=== PATIENT | male | born 1995 | race Caucasian/White ===

== ENCOUNTER 2020-12-12 21:02 | Emergency (ER) | payer SELFPAY ==
[~2020-12-12] VITALS: Ht 177.8 cm; Wt 95.7 kg
[2020-12-12] MEDS ORDERED: KETOROLAC 30 MG/1 ML ONE (21:22)
[2020-12-12] MEDS ORDERED: LORazepam 2 MG/ML, 1ML ONE (21:22)
[2020-12-12] MEDS ORDERED: KETOROLAC 30 MG/1 ML IVPush ONE (21:30)
[2020-12-12] MEDS ORDERED: SODIUM CHLORIDE 0.9% 1,000ML IVBOLUS ONE (21:30)
[2020-12-12] MEDS ORDERED: LORazepam 2 MG/ML, 1ML IVPush ONE (21:30)
[2020-12-12] MEDS ORDERED: SODIUM CHLORIDE FLUSH 10ML SYR IVF ONE (21:30)
--- NOTE | 2020-12-12 21:35 | NUR ---
PT TO ED C/O L CP. STATES HE WAS ABOUT TO SIT DOWN TO DINNER AND DEVELOPED THIS SUDDEN PAIN, AND RAN OUT OF [facility]. PT ON MONITOR, ST @125. PT ALSO C/O R FA PAIN. PT TACHYPENIC, STATES THIS HAPPENED ABOUT 5 MONTHS AGO, SAW A HUNTER GUIDE BUT NO OTHER F/U REQD. PIV ESTB, LABS SENT, MEDS PER OCT. CALL LIGHT IN REACH. WILL CTM. B/L BPS OBTAINED.
[2020-12-12 21:48] LABS: ALANINE AMINOTRANSFERASE 110 U/L (12-78); ALBUMIN 4.1 g/dL (3.4-5.0); ANION GAP 8 mmol/L (5-15); CALCIUM 8.9 mg/dL (8.5-10.1); CHLORIDE 105 mmol/L (98-107); CREATININE 1.15 mg/dL (0.7-1.3)
[2020-12-12 21:55] LABS: BASOPHILS % (AUTO) 1 % (0-1); EOSINOPHILS % (AUTO) 3 % (1-7); LYMPHOCYTES % (AUTO) 41 % (22-44); MD NO; MEAN CORPUSCULAR HEMOGLOBIN 33.5 pg (27.5-34.5); MEAN CORPUSCULAR HGB CONC 35.3 g/dL (33.2-36.2); MEAN PLATELET VOLUME 7.2 fL (7.4-10.4); MONOCYTES % (AUTO) 10 % (2-9); NEUTROPHILS % (AUTO) 45 % (42-75); PLATELET COUNT 349 x10^3/uL (130-400); RED CELL DISTRIBUTION WIDTH 13.2 % (9.4-14.8)
[2020-12-12 21:59] LABS: ALKALINE PHOSPHATASE 91 U/L (45-117); BILIRUBIN,TOTAL 0.7 mg/dL (0.2-1.0); T4 (THYROXINE) 10.8 mcg/dL (4.5-12.1); TOTAL PROTEIN 8.4 g/dL (6.4-8.2); TROPONIN I < 0.015 ng/mL (0.000-0.045)
[2020-12-12 22:08] VITALS: BP 134/84
--- NOTE | 2020-12-12 22:11 | NUR ---
PT STATES FEELING MILDLY BETTER, INTERMITTEN CP. AMBULATORY TO RESTROOM C STEADY GAIT.
--- NOTE | 2020-12-12 22:23 | NUR ---
TO CT VIA CART. FAMILY AT BS.
[2020-12-12 22:40] LABS: AMPHETAMINE SCREEN, URINE Negative (Negative); BARBITURATE SCREEN, URINE Negative (Negative); BENZODIAZEPINE SCREEN, URINE Negative (Negative); CANNABINOID SCREEN, URINE Negative (Negative); COCAINE SCREEN, URINE Negative (Negative); METHADONE SCREEN, URINE Negative (Negative); OPIATE SCREEN, URINE Negative (Negative)
[2020-12-12] MEDS ORDERED: OMNIPAQUE 350 MG/ML, 100ML BOTTLE ONE (23:00)
== END 2020-12-12 23:13 | disposition home or self-care (01) ==
LOC: ED 23:01
DX: R07.2 Precordial pain (principal); R06.02 Shortness of breath; R94.5 Abnormal results of liver function studies; R10.9 Unspecified abdominal pain; R00.0 Tachycardia, unspecified; R94.31 Abnormal electrocardiogram [ECG] [EKG]; F17.210 Nicotine dependence, cigarettes, uncomplicated
CPT/HCPCS: 36415; 71045; 71275; 80053; 80307; 80320; 83690; 83735; 83880; 84436; 84443; 84484; 85025; 85379; 93005; 96361; 96374; 96375; 99285; 99406; J1885; J2060; J7030; Q9967; G0480

== ENCOUNTER 2021-01-13 17:34 | Emergency (ER) | payer MEDICAID, OTHER ==
[~2021-01-13] VITALS: Ht 177.8 cm; Wt 95.5 kg
--- NOTE | 2021-01-13 17:42 | NUR ---
EKG done in triage.
[2021-01-13] MEDS ORDERED: METOPROLOL TARTRATE 50 MG TAB PO ONE (18:30)
[2021-01-13] MEDS ORDERED: KETOROLAC 30 MG/1 ML IM ONE (18:30)
--- NOTE | 2021-01-13 19:03 | NUR ---
pt resting in bed, MD david at bedside, pt agreed to POC, all needs in reach, call light in reach, NAD
[2021-01-13 19:31] VITALS: BP 127/76
== END 2021-01-13 19:36 | disposition home or self-care (01) ==
LOC: ED 19:18
DX: R00.0 Tachycardia, unspecified (principal); M94.0 Chondrocostal junction syndrome [Tietze]; R00.2 Palpitations; R42 Dizziness and giddiness
CPT/HCPCS: 93005; 99283

== ENCOUNTER 2021-02-08 11:52 | Emergency (ER) | payer MEDICAID ==
[~2021-02-08] VITALS: Ht 177.8 cm; Wt 92.0 kg
--- NOTE | 2021-02-08 12:14 | NUR ---
ADDICTION TREATMENT COUNSELOR: EKG OF PT DONE IN TRIAGE
[2021-02-08 12:24] LABS: BASOPHILS % (AUTO) 1 % (0-1); EOSINOPHILS % (AUTO) 2 % (1-7); LYMPHOCYTES % (AUTO) 29 % (22-44); MEAN CORPUSCULAR HEMOGLOBIN 34.1 pg (27.5-34.5); MEAN CORPUSCULAR HGB CONC 36.4 g/dL (33.2-36.2); MEAN PLATELET VOLUME 6.8 fL (7.4-10.4); MONOCYTES % (AUTO) 7 % (2-9); NEUTROPHILS % (AUTO) 62 % (42-75); PLATELET COUNT 394 x10^3/uL (130-400); RED BLOOD COUNT 5.04 x10^6/uL (4.38-5.82); RED CELL DISTRIBUTION WIDTH 12.5 % (9.4-14.8)
[2021-02-08] MEDS ORDERED: ASPIRIN 81 MG TABLET CHEW PO ONE (12:30)
[2021-02-08 12:34] LABS: ALBUMIN 4.2 g/dL (3.4-5.0); ANION GAP 5 mmol/L (5-15); CALCIUM 9.8 mg/dL (8.5-10.1); CHLORIDE 107 mmol/L (98-107); CREATININE 1.12 mg/dL (0.7-1.3)
[2021-02-08 12:37] LABS: TROPONIN I < 0.015 ng/mL (0.000-0.045)
--- NOTE | 2021-02-08 13:50 | NUR ---
PT REPORTS RACING HEART AND CHEST PAIN, SHORTNESS OF BREATH WITH EXERTION, WORE HALTER MONITOR AND GETS RESULTS FROM DOCTOR TOMORROW. SYMPTOMS HAVE BEEN ONGOING SINCE JULY WHEN HE WAS DIAGNOSED RACHELLE
[2021-02-08] MEDS ORDERED: METO-282 PO (13:56)
[2021-02-08] MEDS ORDERED: MORPHINE SULFATE 4 MG/ML, 1ML IVPush PRN (14:30)
[2021-02-08] MEDS ORDERED: LORazepam 2 MG/ML, 1ML IVPush ONE (14:30)
[2021-02-08] MEDS ORDERED: ASPIRIN 81 MG TABLET CHEW ONE (14:48)
[2021-02-08] MEDS ORDERED: MORPHINE SULFATE 4 MG/ML, 1ML ONE (14:48)
[2021-02-08] MEDS ORDERED: LORazepam 2 MG/ML, 1ML ONE (14:50)
--- NOTE | 2021-02-08 14:55 | NUR ---
Lilliam RN note: Pt shouting in room, this RN entered. Pt c/o 03/30 Chest pain and racing heart. Pt cooperative with this RN assisting him back to resting in bed. All monitors reapplied, VSS. Pt medicated per OCT. Discussed with prrimary RN.
[2021-02-08 14:57] VITALS: BP 131/85
[2021-02-08] MEDS ORDERED: OMNIPAQUE 350 MG/ML, 75ML BOTTLE ONE (15:53)
== END 2021-02-08 17:03 | disposition home or self-care (01) ==
LOC: ED 13:57
DX: R07.89 Other chest pain (principal); R00.0 Tachycardia, unspecified
CPT/HCPCS: 36415; 71045; 71275; 80048; 82040; 83880; 84484; 85025; 93005; 96374; 96375; 99285; J2060; J2270; Q9967